=== PATIENT | female | born 1980 | race Caucasian/White ===

== ENCOUNTER 2017-02-02 18:40 | Emergency (ER) | payer OTHER ==
[2017-02-02 18:52] VITALS: BP 124/82
[2017-02-02] MEDS ORDERED: IBUPROFEN 800 MG TABLET PO STA (19:00)
[2017-02-02] MEDS ORDERED: HYDROcod/ACET 5/325 Prepack 6 PO STA (19:00)
--- NOTE | 2017-02-02 19:02 | ED Physician Documentation ---
PD HPI UPPER EXT INJURY - Stated complaint Stated Complaint: RT SHOULDER PAIN - Chief complaint Chief Complaint: Ext Problem - History obtained from History obtained from: Patient - History of Present Illness Location: Right (Strained her shoulder while lifting something last night at home. She's had a lot of issues with that arm before, and a.c. separation and clavicular fracture. She points to the a.c. joint as the site of pain.) Review of Systems Constitutional: reports: Reviewed and negative Cardiac: reports: Reviewed and negative Respiratory: reports: Reviewed and negative PD PAST MEDICAL HISTORY - Past Medical History Past Medical History: Yes Psych: ADD/ADHD - Past Surgical History Past Surgical History: Yes - Present Medications Home Medications: Ambulatory Orders Medication Instructions Recorded Confirmed Dextroamphetamine/Amphetamine 20 mg PO DAILY 02/02/17 02/02/17 [Adderall 20 mg Tablet] - Allergies Allergies/Adverse Reactions: Allergies Allergy/AdvReac Type Severity Reaction Status Date / Time No Known Drug Allergies Allergy Verified 02/02/17 18:52 - Social History Does the pt smoke?: No Smoking Status: Never smoker Does the pt drink ETOH?: No Does the pt have substance abuse?: No PD ED PE NORMAL - Vitals Vital signs reviewed: Yes - General General: Alert and oriented X 3, No acute distress - Extremities Extremities: Other (Tender over the right a.c. joint, glenohumeral joint. No pain with internal/external rotation but really can't abduct at all. NVI in the hand and over the deltoid.) - Neuro Neuro: Alert and oriented X 3, Normal speech - Psych Psych: Normal mood, Normal affect Results - Vitals Vitals: Vital Signs - 24 hr 02/02/17 18:48 Temperature 36.4 C L Heart Rate 92 Respiratory 14 Rate Blood Pressure 124/82 H O2 Saturation 100 Oxygen O2 Source Room air - Rads (name of study) R shoulder 3v Radiology: EMP read contemporaneously (normal) PD MEDICAL DECISION MAKING - ED course ED course: 36-year-old woman, clinically with a mild a.c. separation, x-ray normal. Motrin here and a Vicodin prepack to see her PCM, tomorrow, she is active duty. Departure - Departure Disposition: 01 Home, Self Care Clinical Impression: Sprain of right shoulder Qualifiers: Encounter type: initial encounter Shoulder sprain type: unspecified sprain Qualified Code(s): S43.401A - Unspecified sprain of right shoulder joint, initial encounter Condition: Good Record reviewed to determine appropriate education?: Yes Instructions: ED Sprain AC Joint Comments: [place] and further pain medication. Your blood pressure was elevated today on check in to the emergency department. This does not mean that you have hypertension, it is a common phenomenon to check into the emergency department and have elevated blood pressure. I recommend that you see your primary care physician within the week to have it rechecked when you're feeling better.
[2017-02-02] MEDS ORDERED: HYDROcod/ACET 5/325 Prepack 6 PO ONE (19:06)
[2017-02-02] MEDS ORDERED: IBUPROFEN 800 MG TABLET PO ONE (19:07)
--- NOTE | 2017-02-02 19:51 | XRAY Preliminary Report ---
Exam: XR Shoulder 3 View RT IMPRESSION: Normal shoulder radiography. [facility] SITE ID: [id number]
--- NOTE | 2017-02-02 19:54 | XRAY Report ---
EXAM: RIGHT SHOULDER RADIOGRAPHY EXAM DATE: 02/02/2017 07:41 PM. CLINICAL HISTORY: Shoulder in. COMPARISON: None. TECHNIQUE: 3 views. FINDINGS: Bones: Normal. No fracture or bone lesion. Joints: The glenohumeral and acromioclavicular joints are normal. Soft tissues: The visualized hemithorax is unremarkable. No soft tissue swelling. IMPRESSION: Normal shoulder radiography. [facility] Referring Provider Line: [phone] SITE ID: [id number]
== END 2017-02-02 20:00 | disposition home or self-care (01) ==
LOC: ED 18:40
DX: S43.401A Unspecified sprain of right shoulder joint, initial encounter (principal); S43.101A Unspecified dislocation of right acromioclavicular joint, initial encounter; X50.0XXA Overexertion from strenuous movement or load, initial encounter; Y93.89 Activity, other specified; Y92.009 Unspecified place in unspecified non-institutional (private) residence as the place of occurrence of the external cause; R03.0 Elevated blood-pressure reading, without diagnosis of hypertension
CPT/HCPCS: 73030; 99283; A9270

== ENCOUNTER 2018-03-26 18:29 | Observation (INO) | payer OTHER ==
[2018-03-26] MEDS ORDERED: ONDANSETRON 4 MG/2 ML VIAL IVP STA ×2 (18:48→22:19)
[2018-03-26] MEDS ORDERED: MORPHINE 10 MG/ML VIAL IVP STA ×2 (18:48→20:15)
--- NOTE | 2018-03-26 18:51 | ED Physician Documentation ---
PD HPI ABD PAIN - Stated complaint Stated Complaint: RUQ PAIN - Chief complaint Chief Complaint: Abd Pain - History obtained from History obtained from: Patient - History of Present Illness Timing - onset: Today (She had sudden onset right upper quadrant pain radiating to the right shoulder blade and through the back starting within the last hour or 2 after eating rotisserie chicken. She never had this before. No history of abdominal surgeries. Pain is severe and sharp.) Review of Systems Ten Systems: 10 systems reviewed and negative Constitutional: denies: Fever, Chills Cardiac: denies: Chest pain / pressure, Palpitations Respiratory: denies: Dyspnea, Cough GI: denies: Nausea, Vomiting, Diarrhea PD PAST MEDICAL HISTORY - Past Medical History Past Medical History: Yes Endocrine/Autoimmune: HyPOthyroidism Psych: ADD/ADHD - Past Surgical History Past Surgical History: No - Present Medications Home Medications: Ambulatory Orders Medication Instructions Recorded Confirmed Dextroamphetamine/Amphetamine 20 mg PO DAILY 02/02/17 02/02/17 [Adderall 20 mg Tablet] Norgestimate-Ethinyl Estradiol 1 each PO 03/26/18 [Trinessa Tablet] - Allergies Allergies/Adverse Reactions: Allergies Allergy/AdvReac Type Severity Reaction Status Date / Time No Known Drug Allergies Allergy Verified 03/26/18 18:34 - Social History Does the pt smoke?: No Smoking Status: Never smoker Does the pt drink ETOH?: No Does the pt have substance abuse?: No - Family History Family history: reports: Non contributory PD ED PE NORMAL - Vitals Vital signs reviewed: Yes - General General: Alert and oriented X 3, Other (Uncomfortable) - HEENT HEENT: PERRL, EOMI - Neck Neck: Supple, no meningeal sign, No bony TTP - Cardiac Cardiac: RRR, No murmur - Respiratory Respiratory: No respiratory distress, Clear bilaterally - Abdomen Abdomen: Other (Mild right upper quadrant tenderness with equivocal Krueger sign. ) - Back Back: No CVA TTP, No spinal TTP - Derm Derm: Normal color, Warm and dry - Extremities Extremities: No edema, No calf tenderness / cord - Neuro Neuro: Alert and oriented X 3, Normal speech Results - Vitals Vitals: Vital Signs - 24 hr 03/26/18 03/26/18 03/26/18 18:31 20:45 22:30 Temperature 35.6 C L 36.6 C Heart Rate 77 89 83 Respiratory 16 17 16 Rate Blood Pressure 144/82 H 156/87 H 126/69 O2 Saturation 100 95 94 Oxygen O2 Source Room air - Labs Labs: Laboratory Tests 03/26/18 03/26/18 03/26/18 19:05 19:05 19:05 WBC 9.3 RBC 4.47 Hgb 13.0 Hct 37.7 MCV 84.2 MCH 29.1 MCHC 34.5 RDW 12.4 Plt Count 277 MPV 7.9 Neut # (Auto) 6.1 Lymph # (Auto) 2.2 [place] # (Auto) 0.7 Eos # (Auto) 0.1 Baso # (Auto) 0.1 Absolute Nucleated RBC 0.00 Nucleated RBC % 0.0 Sodium 139 Potassium 3.3 L Chloride 103 Carbon Dioxide 27 Anion Gap 9.0 BUN 15 Creatinine 0.7 Estimated GFR (MDRD) 94 Glucose 104 H Calcium 8.8 Total Bilirubin 0.7 AST 29 ALT 20 Alkaline Phosphatase 78 Total Protein 7.4 Albumin 3.8 Globulin 3.6 Albumin/Globulin Ratio 1.1 Lipase 43 Urine Color YELLOW Urine Clarity CLEAR Urine pH 6.5 Ur Specific [place] 1.020 Urine Protein NEGATIVE Urine Glucose (UA) NEGATIVE Urine Ketones 15 H Urine Occult Blood NEGATIVE Urine Nitrite NEGATIVE Urine Bilirubin NEGATIVE Urine Urobilinogen 0.2 (NORMAL) Ur Leukocyte Esterase NEGATIVE Ur Microscopic Review NOT INDICATED Urine Culture Comments NOT INDICATED Urine HCG, Qual NEGATIVE - Rads (name of study) RUQ sono Radiology: EMP read contemporaneously (Cholelithiasis without findings of cholecystitis.) PD MEDICAL DECISION MAKING - ED course ED course: 38-year-old woman with an acute abdominal pain attack consistent with biliary colic. Lots of gallstones on CT but no overt evidence of cholecystitis. We were unable to control her pain here despite multiple doses of narcotics and I spoke with Dr. Rojas, the on-call surgeon for observation and cholecystectomy 9 :14 PM. He felt that this was not yet consistent with intractable biliary colic, and requested that we try to control her pain for another hour or so before we make the decision to admit. She continued to have waxing and waning but unrelenting pain and I spoke with Dr Rojas again at 2240 and he will obs for sarah. - Sepsis Event Vital Signs: Vital Signs - 24 hr 03/26/18 03/26/18 03/26/18 18:31 20:45 22:30 Temperature 35.6 C L 36.6 C Heart Rate 77 89 83 Respiratory 16 17 16 Rate Blood Pressure 144/82 H 156/87 H 126/69 O2 Saturation 100 95 94 Oxygen O2 Source Room air Departure - Departure Disposition: ED Place in Observation Clinical Impression: Biliary colic Condition: Stable
[2018-03-26 19:11] LABS: BILIRUBIN,URINE NEGATIVE (NEGATIVE); GLUCOSE, URINE (UA) NEGATIVE (NEGATIVE); KETONES,URINE (UA) 15 mg/dL (NEGATIVE); LEUKOCYTE ESTERASE, URINE NEGATIVE (NEGATIVE); NITRITE,URINE NEGATIVE (NEGATIVE); OCCULT BLOOD,URINE NEGATIVE (NEGATIVE); PH,URINE 6.5 PH (5.0-7.5); PROTEIN,URINE NEGATIVE (NEGATIVE); UROBILINOGEN,URINE 0.2 (NORMAL) E.U./dL (NORMAL)
[2018-03-26 19:19] LABS: BASOPHILS # (AUTO) 0.1 10^3/uL (0.0-0.1); BASOPHILS % (AUTO) 0.7 %; EOSINOPHILS # (AUTO) 0.1 10^3/uL (0.0-0.7); EOSINOPHILS % (AUTO) 1.6 %; LYMPHOCYTES # (AUTO) 2.2 10^3/uL (1.5-3.5); LYMPHOCYTES % (AUTO) 23.8 %; MEAN CORPUSCULAR HEMOGLOBIN 29.1 pg (27.0-31.0); MEAN CORPUSCULAR HGB CONC 34.5 g/dL (32.0-36.0); MEAN CORPUSCULAR VOLUME 84.2 fL (81.0-99.0); MEAN PLATELET VOLUME 7.9 fL (7.9-10.8); MONOCYTES # (AUTO) 0.7 10^3/uL (0.0-1.0); MONOCYTES % (AUTO) 7.9 %; NEUTROPHILS # (AUTO) 6.1 10^3/uL (1.5-6.6); PLT - PLATELET COUNT 277 10^3/uL (130-450); RED BLOOD COUNT 4.47 10^6/uL (4.20-5.40); RED CELL DISTRIBUTION WIDTH 12.4 % (12.0-15.0); WHITE BLOOD COUNT 9.3 x10^3/uL (4.8-10.8)
[2018-03-26 19:22] LABS: CLARITY,URINE CLEAR (CLEAR); HCG UR QUAL NEGATIVE
[2018-03-26 19:31] LABS: ALBUMIN 3.8 g/dL (3.2-5.5); ALBUMIN/GLOBULIN RATIO 1.1 (1.0-2.2); BILIRUBIN,TOTAL 0.7 mg/dL (0.2-1.0); CALCIUM 8.8 mg/dL (8.5-10.3); CREATININE 0.7 mg/dL (0.4-1.0); TOTAL PROTEIN 7.4 g/dL (6.7-8.2)
--- NOTE | 2018-03-26 20:25 | Ultrasound Report ---
Procedure Date: 03/26/2018 Accession Number: [id number] / [id number] Procedure: US - Abdomen Limited CPT Code: FULL RESULT: EXAM: ABDOMEN ULTRASOUND LIMITED, RUQ EXAM DATE: 03/26/2018 07:01 PM. CLINICAL HISTORY: RUQ pain. COMPARISON: None. TECHNIQUE: Real-time scanning was performed with static images obtained. FINDINGS: Liver: Normal in size and echotexture. 15.5 cm. Main portal vein flow: Hepatopetal. Gallbladder: No wall thickening. No sonographic Krueger sign, the patient reportedly has received analgesics limiting sensitivity. Numerous small mobile shadowing stones present throughout the gallbladder lumen. Biliary System: CBD measures 6.6 mm. No intrahepatic or extrahepatic ductal dilatation. Other: Right kidney is within normal limits measuring 9.7 cm longitudinally without hydronephrosis. IMPRESSION: Cholelithiasis without gallbladder wall thickening or sonographic Krueger sign to suggest acute cholecystitis. However, the patient has reportedly received analgesics reducing sensitivity. Consider surgical consultation and/or nuclear medicine HIDA scan for further evaluation as clinically warranted. [facility]
[2018-03-26] MEDS ORDERED: HYDROmorphone 2 MG/ML VIAL IVP STA (21:08)
[2018-03-26] MEDS ORDERED: KETOROLAC 60 MG/2 ML VIAL IVP STA (21:54)
[2018-03-26] MEDS ORDERED: MORPHINE 2 MG/ML SYRINGE IVP PRN (23:09)
[2018-03-26] MEDS ORDERED: MORPHINE 2 MG/ML SYRINGE IVP SCH (23:45)
[2018-03-27] MEDS: SODIUM CHLORIDE 0.9% 1,000 ML IV SCH ×2 (01:15→09:37)
[2018-03-27] MEDS: SODIUM CHLORIDE FLUSH 0.9% 10 ML SYRINGE IVP SCH ×3 (01:16→15:39)
[2018-03-27] MEDS: ACETAMINOPHEN 1,000 MG/100 ML 100 ML IV SCH ×4 (01:16→18:43)
[2018-03-27] MEDS: MORPHINE 2 MG/ML SYRINGE IVP PRN ×5 (01:54→23:48)
[2018-03-27] MEDS: AMPICILLIN/SULBACTAM 3 GM in SODIUM CHLORIDE 0.9% MINIBAG 100 ML IV SCH ×4 (01:56→19:01)
[2018-03-27 06:05] LABS: BASOPHILS % (AUTO) 0.5 %; EOSINOPHILS # (AUTO) 0.1 10^3/uL (0.0-0.7); EOSINOPHILS % (AUTO) 0.8 %; HGB - HEMOGLOBIN 13.4 g/dL (12.0-16.0); LYMPHOCYTES # (AUTO) 1.7 10^3/uL (1.5-3.5); LYMPHOCYTES % (AUTO) 18.4 %; MEAN CORPUSCULAR HEMOGLOBIN 28.9 pg (27.0-31.0); MEAN CORPUSCULAR HGB CONC 33.7 g/dL (32.0-36.0); MEAN CORPUSCULAR VOLUME 85.9 fL (81.0-99.0); MEAN PLATELET VOLUME 8.1 fL (7.9-10.8); MONOCYTES # (AUTO) 0.7 10^3/uL (0.0-1.0); MONOCYTES % (AUTO) 7.1 %; NEUTROPHILS # (AUTO) 6.8 10^3/uL (1.5-6.6); NEUTROPHILS % (AUTO) 73.2 %; PLT - PLATELET COUNT 264 10^3/uL (130-450); RED BLOOD COUNT 4.62 10^6/uL (4.20-5.40); RED CELL DISTRIBUTION WIDTH 12.8 % (12.0-15.0); WHITE BLOOD COUNT 9.2 x10^3/uL (4.8-10.8)
[2018-03-27 06:19] LABS: ALBUMIN 3.3 g/dL (3.2-5.5); ALBUMIN/GLOBULIN RATIO 0.9 (1.0-2.2); BILIRUBIN,TOTAL 0.8 mg/dL (0.2-1.0); CALCIUM 8.6 mg/dL (8.5-10.3); CREATININE 0.5 mg/dL (0.4-1.0)
--- NOTE | 2018-03-27 08:40 | ANESTHESIA ---
Pre-Anesthesia VS, & Labs - Diagnosis Cholecystitis, cholelithiasis - Procedure Laparscopic cholecystectomy Vital Signs: Temp Pulse Resp BP Pulse Ox 36.5 C 66 16 122/67 97 03/27/18 08:29 03/27/18 08:29 03/27/18 08:29 03/27/18 08:29 03/27/18 08:29 Height 5 ft Weight (kg) 81 kg Body Mass Index 34.9 - NPO >8 hours - Is Patient ?: No Comments:: negative HCG - Lab Results Fish Bones: 03/27/18 05:25 03/27/18 05:25 Home Medications and Allergies Home Medications: Ambulatory Orders Medication Instructions Recorded Confirmed Dextroamphetamine/Amphetamine 20 mg PO DAILY 02/02/17 02/02/17 [Adderall 20 mg Tablet] Norgestimate-Ethinyl Estradiol 1 each PO 03/26/18 [Trinessa Tablet] Allergies/Adverse Reactions: Allergies Allergy/AdvReac Type Severity Reaction Status Date / Time No Known Drug Allergies Allergy Verified 03/26/18 18:34 Anes History & Medical History - Anesthetic History Anesthesia Complications: reports: Post-Operative Nausea/Vomiting, Slow wake-up Family history of Anesthesia Complications: Denies Family history of Malignant Hyperthermia: Denies - Airway/Dental Dental: WNL (small mouth) Neck Mobility: Normal Mallampati classification: II Thyromental Distance: 4-6 cm - Medical History Cardiovascular: reports: None, High cholesterol Pulmonary: reports: None Gastrointestinal: reports: Cholelithiasis Urinary: reports: None Neuro: reports: None Musculoskeletal: reports: None Endocrine/Autoimmune: reports: HyPOthyroidism Smoking Status: Never smoker Psychosocial: reports: No issues indicated - Surgical History Orthopedic: Carpal Tunnel surgery (X2,), Other (Ulnar nerve repair X2) Dermatologic: Other (microbody sculpting with lazer to hip) Exam General: Alert Respiratory: Lungs clear Cardiovascular: Regular rate Mental/Cognitive Status: Alert/Oriented X3 Plan Anesthesia Type: General Consent for Operative Procedure(s) Verified and Reviewed: Yes Code Status: Attempt Resuscitation ASA classification: 2-Mild systemic disease Is this case an emergency?: No
[2018-03-27] MEDS ORDERED: BUPIVACAINE 0.5%-EPI 1:200000 PF 30 ML VIAL ONE (14:42)
[2018-03-27] MEDS: ONDANSETRON 4 MG/2 ML VIAL IVP PRN ×2 (15:39→21:24)
[2018-03-27] MEDS ORDERED: BUPIVACAINE 0.5%-EPI 1:200000 PF 30 ML VIAL SUBQ ONE ×2 (16:40)
[2018-03-27] MEDS ORDERED: GLYCOPYRROLATE 1 MG/5 ML VIAL IVP ONE (17:06)
[2018-03-27] MEDS ORDERED: NEOSTIGMINE 1 MG/1 ML 10 ML MDV IVP ONE (17:06)
[2018-03-27] MEDS ORDERED: fentaNYL 100 MCG/2 ML VIAL IVP ONE (17:06)
[2018-03-27] MEDS ORDERED: ONDANSETRON 4 MG/2 ML VIAL IVP ONE (17:06)
[2018-03-27] MEDS ORDERED: DEXAMETHASONE 4 MG/ML VIAL IVP ONE (17:06)
[2018-03-27] MEDS ORDERED: LIDOCAINE-MPF 2% 5 ML VIAL IM ONE (17:06)
[2018-03-27] MEDS ORDERED: KETOROLAC 30 MG/ML VIAL IVP ONE (17:06)
[2018-03-27] MEDS ORDERED: PROPOFOL 200 MG/20 ML VIAL IVP ONE (17:06)
[2018-03-27] MEDS ORDERED: MIDAZOLAM 2 MG/2 ML VIAL IVP ONE (17:06)
[2018-03-27] MEDS ORDERED: LACTATED RINGERS 1,000 ML IV ONE (17:17)
[2018-03-27] MEDS ORDERED: HYDROcod/ACETAM 5/325 MG TABLET PO PRN ×2 (17:19)
[2018-03-27] MEDS ORDERED: SODIUM CHLORIDE 0.9% 1,000 ML IV SCH (17:20)
[2018-03-27] MEDS ORDERED: MORPHINE 10 MG/ML VIAL ONE (18:05)
[2018-03-27] MEDS: SODIUM CHLORIDE FLUSH 0.9% 10 ML SYRINGE IVP PRN ×3 (18:44→23:48)
--- NOTE | 2018-03-27 19:49 | OPERATIVE REPORT ---
DATE OF SERVICE: 03/26/2018 Physician: Robson Rojas MD PREOPERATIVE DIAGNOSIS: Acute cholecystitis. POSTOPERATIVE DIAGNOSIS: Acute cholecystitis. PROCEDURE PERFORMED: Laparoscopic cholecystectomy. OPERATING SURGEON: Robson Rojas MD ANESTHESIA: General. INDICATIONS FOR PROCEDURE: Patient is a 38-year-old female who had an acute onset of epigastric pain radiating to her back starting on the day of admission. This is the first time she has had this. This was after eating rotisserie chicken. The patient's pain persisted and therefore she came to the emergency room. The patient had normal white blood cell count. However, despite being given pain medication, she continued to have pain in the epigastric region along with tenderness. She had an abdominal ultrasound which revealed gallbladder with gallstones without thickening. She was admitted for observation. FINDINGS AT SURGERY: Patient had acutely distended gallbladder with some inflammation being present. DESCRIPTION OF PROCEDURE: After informed consent was obtained, patient was taken to the operating room and placed in the supine position. General endotracheal anesthesia was administered. Patient's abdomen was then prepped and draped in the usual sterile fashion. Prior to making abdominal incisions, the skin was injected with local anesthesia. An infraumbilical incision was made in the skin using a scalpel. A 5 mm Optiview trocar was then inserted through the incision, through the fascia and into the abdominal cavity under direct vision. The abdomen was then insufflated. Looking inside, no injuries were noted. Three 5 mm ports were then placed in the right upper quadrant, and the 5 mm port at the umbilical area was then switched to a 12 port under direct vision. Gallbladder was acutely distended. A needle was then inserted in the gallbladder draining it of its contents. The gallbladder fundus was then grasped and lifted anteriorly and superiorly exposing the triangle of [place]. The peritoneum in this area was then scored allowing access to the cystic duct, which was dissected free from the surrounding structures. A critical view was obtained. Clips were then placed proximally and distally along the cystic duct with them being divided. The cystic artery was likewise isolated, clipped, and divided. The gallbladder was then dissected off the gallbladder bed using electrocautery, placed in Endobag, and removed through the umbilical port. The right upper quadrant was thoroughly irrigated until the return fluid was clear. The ports were then removed, and no bleeding was noted at the port sites, with the abdomen then being desufflated. The umbilical fascial defect was closed using #0 Vicryl suture. The incisions were closed using 4-0 Monocryl subcuticular stitches. Dermabond was then applied. Patient was then awakened, extubated, and taken from the operating room in stable condition. ESTIMATED BLOOD LOSS: 25 mL. COMPLICATIONS: None. CONDITION OF THE PATIENT AT END OF PROCEDURE: Stable. SPECIMENS: Gallbladder with gallstones. DRAINS AND PACKS: None. CLASSIFICATION OF WOUND: Clean, contaminated. TD: 03/27/2018 19:05 MTDD
[2018-03-27] MEDS ORDERED: oxyCODONE 5 MG TABLET PO PRN (23:49)
[2018-03-28] MEDS: AMPICILLIN/SULBACTAM 3 GM in SODIUM CHLORIDE 0.9% MINIBAG 100 ML IV SCH ×2 (00:48→06:47)
[2018-03-28] MEDS: ACETAMINOPHEN 1,000 MG/100 ML 100 ML IV SCH ×2 (01:40→06:11)
[2018-03-28] MEDS: SODIUM CHLORIDE FLUSH 0.9% 10 ML SYRINGE IVP SCH (03:22)
[2018-03-28] MEDS: oxyCODONE 5 MG TABLET PO PRN ×2 (06:25→11:59)
[2018-03-28] MEDS: MORPHINE 2 MG/ML SYRINGE IVP PRN (10:03)
--- NOTE | 2018-03-28 11:41 | Discharge Plan ---
Discharge Plan Disposition: Home, Self Care Prescriptions: oxyCODONE [Roxicodone] 5 mg PO Q4HR PRN #40 tablet PRN Reason: Pain Diet: Regular Activity Restrictions: No lifting over 15 lbs Shower Restrictions: No Driving Restrictions: Yes (No driving while on pain medication) Weight Bearing: Full Weight Instruction Topics: Oxycodone tablets or capsules, Cholecystectomy Laparoscopic Dc Additional Instructions or Follow Up instructions: Colace 100mg 2 tablets twice a day or miralax daily while using Oxycodone No Smoking: If you smoke, Please STOP! Call for help. Follow-up with: MICHELE MEJIA [Primary Care Provider] - 2 Weeks Harley Rojas MD [Provider Admit Priv/Credential] - 1 Week
--- NOTE | 2018-03-28 11:44 | PROVIDER PROGRESS NOTE ---
Subjective - General Admit Date: 03/26/18 - Review of Systems Wound/Incisions: positive: Healing well Pulmonary: positive: No symptoms Cardiovascular: positive: No symptoms Gastrointestinal: positive: Abdominal pain (Postsurgical improved with pain medication. Preoperative gallbladder pain has resolved.) Objective - Patient Data Vital Signs: Vital Signs x48h Temp Pulse Resp BP Pulse Ox 03/28/18 08:57 36.5 C 72 16 113/66 96 03/28/18 06:32 36.6 C 60 16 107/61 96 Weight: Weight 03/26/18 03/27/18 03/28/18 23:59 23:59 23:59 Weight (kg) 81 kg Intake & Output: Intake and Output Totals x24h 03/26/18 03/27/18 03/28/18 23:59 23:59 23:59 Intake Total 3000.0 1750 Balance 3000.0 1750 - Lab Results Lab Results: 03/27/18 05:25 03/27/18 05:25 - Current Medications Current Medications: Current Medications Generic Name Dose Route Start Last Admin Trade Name Freq PRN Reason Stop Dose Admin Acetaminophen 100 mls @ 400 mls/hr 03/26/18 23:45 03/28/18 06:47 Ofirmev IV Infused Q6H PATRICIO Infusion Ampicillin Sodium/Sulbactam 100 mls @ 200 mls/hr 03/27/18 00:00 03/28/18 07: 32 Sodium 3 gm/ Sodium Chloride IV Infused Q6H PATRICIO Infusion Sodium Chloride 1,000 mls @ 60 mls/hr 03/27/18 17:20 03/28/18 11:37 Normal Saline 0.9% IV Infused .[id number] PATRICIO Infusion Morphine Sulfate 4 mg 03/26/18 23:08 03/28/18 10:03 Morphine IVP 4 mg Q2H PRN Administration PAIN Ondansetron HCl 4 mg 03/26/18 23:09 03/27/18 21:24 Zofran Inj IVP 4 mg Q6H PRN Administration Nausea / Vomiting Oxycodone HCl 5 mg 03/27/18 23:48 03/28/18 06:25 Roxicodone PO 5 mg Q4HR PRN Administration PAIN Sodium Chloride 10 ml 03/27/18 01:00 03/28/18 03:22 Normal Saline Flush 0.9% IVP Not Given 0100,0900,1700 PATRICIO Sodium Chloride 10 ml 03/26/18 23:05 03/27/18 23:48 Normal Saline Flush 0.9% IVP 10 ml PRN PRN Administration NEEDED PER PROVIDER ORDERS - Physical Exam Wound/Incisions: positive: Healing well Rectal: positive: Other (incision clean mild bruising at umbilicus) Impression/Plan - Problem List Problem List: s/p laparoscopic cholecystectomy POD#1 for acute cholecystitis. Preoperative gallbladder pain has resolved. Post surgical pain alleviated with Oxycodone. Tolerating liquids. Ambulating D/c home.
[2018-03-28 12:06] VITALS: BP 118/61
--- NOTE | 2018-04-01 03:47 | DISCHARGE SUMMARY ---
Physician: Robson Rojas MD DATE OF ADMISSION: 03/26/2018 DATE OF DISCHARGE: 03/28/2018 REASON FOR ADMISSION: Right upper quadrant abdominal pain. HISTORY OF PRESENT ILLNESS: The patient is a 38-year-old female who presents with acute onset of abd ominal pain in right upper quadrant. She was seen in the emergency room. Ultrasound of the abdomen revealed gallbladder with gallstones. She had normal white blood cell count and liver function tests . However, she continued to have pain in her right upper quadrant along with tenderness, clinically having acute cholecystitis PRINCIPAL DIAGNOSIS: Acute cholecystitis. OTHER MEDICAL PROBLEMS 1. Attention-deficit hyperactivity disorder. 2. Hypothyroidism. PROCEDURES: The patient underwent a laparoscopic cholecystectomy on 03/27/2018. HOSPITAL COURSE: The patient was admitted to the hospital and started on IV antibiotics along with p ain control. She was then taken to surgery and underwent the above procedure uneventfully. She was then transferred to the floor. She was started on liquid diet along with oral pain medication, which she tolerated on postoperative day one. Her abdominal incisions remained clean without any evidence of infection. She was then discharged home in stable condition. DISCHARGE PROGRAM: Patient will be discharged home. Followup in surgical clinic in 1-2 weeks. Regu lar diet. Ambulate with no heavy lifting over 15 pounds for two weeks. May shower. She is to resum e her prehospitalization medications; in addition [place] 5/325 one to two p.o. q. 4-6 hours p.r.n. abril salomon TD: 03/31/2018 14:41
== END 2018-03-28 12:09 | disposition home or self-care (01) ==
LOC: EDUNIT# → ED 18:29 → MS2 23:05
PROVIDERS: ADMIT Surgery; ATTEND Surgery
PROC: 0FT44ZZ Resection of Gallbladder, Percutaneous Endoscopic Approach (ICD-10-PCS; principal; 2018-03-27 16:12)
DX: K80.12 Calculus of gallbladder with acute and chronic cholecystitis without obstruction (principal); E03.9 Hypothyroidism, unspecified; F90.9 Attention-deficit hyperactivity disorder, unspecified type; Z79.899 Other long term (current) drug therapy
CPT/HCPCS: 36415; 47562; 76705; 80053; 81003; 81025; 83690; 85025; 96365; 96366; 96375; 96376; 99284; 99285; A9270; G0378; J0131; J1170; J2270; J7120; 81001; 87086; 88305; 96361; 96367; 96368; 96374; 99283